=== PATIENT | female | born 1995 | race Caucasian/White ===

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

== ENCOUNTER 2017-01-26 18:15 | Emergency (ER) | payer BC, MEDICAID ==
[2017-01-26] MEDS ORDERED: 0.9 % SODIUM CHLORIDE 1,000 ML BAG IV ONE ×2 (18:24→19:47)
[2017-01-26] MEDS ORDERED: ONDANSETRON HCL IV 4 MG/2 ML VIAL IV ONE (18:24)
--- NOTE | 2017-01-26 18:32 | Emergency Department Record ---
History of Present Illness - General Chief Complaint: Abdominal Pain Stated Complaint: 15 WEEKS PREG AND CRAMPING/ VOMITING Time Seen by Provider: 01/26/17 18:24 Source: Patient Mode of Arrival: Ambulatory Limitations: No limitations - History of Present Illness Initial Comments: 21 yo presents with low pelvic cramps for 3 days since Sunday. She believes she is 15 weeks . She has been followed by [facility] and [place] [facility] [place]. No spotting or discharge. No vaginal discharge. She has had 2 prior miscarriages. She has had prior recent ovarian cysts. No fevers. She does have nausea and loss of appetite MD Complaint: Abdominal pain -: Days(s) (3) Location: Suprapubic Radiation: Suprapubic Migration to: Suprapubic Quality: Cramping ("like a period") Improves With: Nothing Worsens With: Eating Context: Other () Associated Symptoms: Anorexia - Related Data Patient : Yes Home Medications Medication Instructions Recorded Confirmed Last Taken Vit 108/Iron/Folic AC 1 each PO DAILY 01/26/17 01/26/17 01/26/17 [ One Tablet] Previous Rx's Medication Instructions Recorded Ondansetron [Zofran Odt] 4 mg PO Q8H #12 tab.rapdis 01/26/17 Allergies Allergy/AdvReac Type Severity Reaction Status Date / Time No Known Drug Allergies Allergy Verified 01/26/17 18:49 Review of Systems Constitutional: Denies: Chills, Fever, Weakness Eyes: Denies: Eye discharge ENT: Denies: Congestion Respiratory: Denies: Cough, Hemoptysis, Stridor Cardiovascular: Denies: Chest pain, Syncope Endocrine: Denies: Fatigue Gastrointestinal: Reports: As per HPI, Abdominal pain, Nausea, Vomiting. Denies : Diarrhea Genitourinary: Denies: Dysuria, Urgency Musculoskeletal: Denies: Arthralgia, Back pain, Joint swelling, Myalgia, Neck pain Skin: Denies: Bruising, Change in color, Rash Neurological: Denies: Headache Psychiatric: Denies: Anxiety Hematological/Lymphatic: Denies: Blood Clots, Easy bleeding, Easy bruising, Swollen glands Past Medical History - SOCIAL HISTORY Smoking Status: Never smoker Drug Use: None - RESPIRATORY Hx Respiratory Disorders: No - CARDIOVASCULAR Hx Cardio Disorders: Yes Comment:: ASD - NEURO Hx Neuro Disorders: No - GI Hx GI Disorders: No - Hx Genitourinary Disorders: No - ENDOCRINE Hx Endocrine Disorders: No - MUSCULOSKELETAL Hx Musculoskeletal Disorders: No - PSYCH Hx Psych Problems: No - HEMATOLOGY/ONCOLOGY Hx Hematology/Oncology Disorders: No Family Medical History Hx Anxiety: Mother Hx Diabetes: Grandparents Hx Seizures: Mother Physical Exam - General General Appearance: Alert, Oriented x3, Cooperative, No acute distress Limitations: No limitations - Head Head exam: Atraumatic, Normocephalic, Normal inspection - Eye Eye exam: Normal appearance, PERRL - ENT ENT exam: Normal exam, Mucous membranes moist Ear exam: Normal external inspection Nasal Exam: Normal inspection Mouth exam: Normal external inspection - Neck Neck exam: Normal inspection, Full ROM. negative: Tenderness - Respiratory Respiratory exam: Normal lung sounds bilaterally. negative: Respiratory distress - Cardiovascular Cardiovascular Exam: Regular rate, Normal rhythm, Normal heart sounds - GI/Abdominal GI/Abdominal exam: Soft, Tenderness (mild tenderness) - Rectal Rectal exam: Deferred - exam: Adnexal tenderness (R) (mild), Normal bimanual exam. negative: Abnormal external exam, Adnexal mass (L), Adnexal mass (R), Adnexal tenderness ( L), Cervical discharge, cervical motion tenderness, Vaginal bleeding, Vaginal discharge - Extremities Extremities exam: Normal inspection, Full ROM, Normal capillary refill. negative: Tenderness - Back Back exam: Reports: Normal inspection, Full ROM. Denies: CVA tenderness (R), CVA tenderness (L), Muscle spasm, Rash noted, Tenderness - Neurological Neurological exam: Alert, Normal gait, Oriented X3 - Psychiatric Psychiatric exam: Normal affect, Normal mood - Skin Skin exam: Dry, Intact, Normal color, Warm Course - Reevaluation(s) Reevaluation #1: 01/26/17 19:06 BMP reviewed. Mild decrease in HCO3 at 21 otherwise negative 01/26/17 19:11 [facility] reviewed Normal US on 11/12, 12/09, and 12/31/16 with small corpus luteal hemorrhagic cyst 1cm ) 01/26/17 19:28 Prelim US report SLIUP with HRT 159, no acute abnormality. 01/26/17 19:29 Rh+ UA obtained Pelvic complete No blood on exam 01/26/17 19:49 The patient is doing well. 2nd liter infusing. No nausea. No cramps 01/26/17 20:05 Wet Prep is negative Medical Decision Making - Lab Data Result diagrams: 01/26/17 18:35 01/26/17 18:35 Disposition Disposition: Discharge Clinical Impression: Abdominal pain affecting Disposition: Home, Self-Care Condition: (1) Good Instructions: Abdominal Pain in (ED) Additional Instructions: Call your OB if you have pain, bleeding, fever, discharge Rest and stay well hydrated this weekend Prescriptions: Ondansetron [Zofran Odt] 4 mg PO Q8H #12 tab.rapdis Forms: Patient Portal Access Time of Disposition: 19:35 Quality - Quality Measures Quality Measures: N/A - Blood Pressure Screening Does Patient Have Any of the Following: No Blood Pressure Classification: Normal BP Reading Systolic Measurement: 100 Diastolic Measurement: 57 Screening for High Blood Pressure: < Normal BP, F/U Not Required > [G8783] Pre-Hypertensive Follow-up Interventions: Referral to alternative/primary care provider.
[2017-01-26 18:40] LABS: BASO % 0.2 % (0-6); EOS % 0.1 % (0-6); GRAN % 75.4 % (47-80); HEMOGLOBIN 12.3 gm/dl (11.6-16.0); LYMPH % 18.2 % (16-45); MEAN CELL VOLUME 84.3 fl (81-97); MEAN CORPUSCULAR HEMOGLOBIN 29.6 pg (27-33); MEAN CORPUSCULAR HGB CONC 35.1 g/dl (32-36); MEAN PLATELET VOLUME 9.6 fl (7.4-10.4); MONO % 6.1 % (0-9); PLATELET COUNT 170 K/uL (130-400); RED BLOOD COUNT 4.15 M/uL (3.80-5.40); RED CELL DISTRIBUTION WIDTH 13.5 % (11.5-14.5); WHITE BLOOD COUNT W/O DIFF 8.7 K/uL (4.2-12.2)
[2017-01-26 18:56] LABS: BLOOD UREA NITROGEN 4 mg/dL (6-20); CREATININE 0.3 mg/dL (0.5-0.9); GLUCOSE,RANDOM 90 mg/dL (74-109)
[2017-01-26 19:42] LABS: URINE APPEARANCE CLEAR; URINE BILIRUBIN NEGATIVE (NEGATIVE); URINE BLOOD NEGATIVE (NEGATIVE); URINE COLOR YELLOW; URINE GLUCOSE (UA) NEGATIVE (NEGATIVE); URINE LEUKOCYTE ESTERASE NEGATIVE (NEGATIVE); URINE NITRITE NEGATIVE (NEGATIVE); URINE PROTEIN NEGATIVE (NEGATIVE); URINE UROBILINOGEN 0.2 E.U./dL (0.20 - 1.00)
[2017-01-26 19:44] LABS: URINE KETONE 80 mg/dL (NEGATIVE)
--- NOTE | 2017-01-27 14:12 | ULTRASOUND REPORT ---
EXAM: ULTRASOUND OB , LATE (14-40 WKS) HISTORY: PAIN. TECHNIQUE: 2ND/3RD TRIMESTER ULTRASOUND WAS PERFORMED. IMAGES WERE SUBMITTED FOR MY INTERPRETATION ON 01/27/17. COMPARISON: None. FINDINGS: There is a single live intrauterine gestation in a transverse lie presentation. The placenta is anterior in location with a grade 1 echotexture. No evidence for previa. Gilles Rojas contractions were present during the exam. Heart tones were obtained at 150 beats per minute. Amniotic fluid volume is subjectively normal. Limited assessment of the anatomy was performed. A more detailed assessment should be performed non-emergently. Estimated weight is 133.7 gm +/- 20 gm. Estimated weight is in the 62nd percentile. RATIOS: FL/BPD: 53.83. HC/AC: 1.18. FL/AC: 17.52. FL/HC: 14.87. Current ultrasound age is 15 weeks, 5 days +/- 1 week, 1 day. IMPRESSION: SINGLE LIVE INTRAUTERINE GESTATION WITH CURRENT ULTRASOUND AGE 15 WEEKS, 5 DAYS. CONTINUED NON-EMERGENT FOLLOW-UP RECOMMENDED. JOB NUMBER: [id number] MTDD
== END 2017-01-26 20:30 | disposition home or self-care (01) ==
LOC: ER 18:15
DX: O26.892 Other specified pregnancy related conditions, second trimester (principal); R10.30 Lower abdominal pain, unspecified; R11.2 Nausea with vomiting, unspecified; Z3A.15 15 weeks gestation of pregnancy
CPT/HCPCS: 99284 ×2; 96374; 96361; 85025; 84702; 80048; 81003; 84703; 86901; 76805; Q0111; J2405; 87210; J7030